=== PATIENT | male | born 1935 | race Caucasian/White ===

== ENCOUNTER 2021-01-14 16:20 | Emergency (ER) | payer OTHER ==
[2021-01-14 17:22] LABS: ALT (SGPT) 16 U/L (8-55); AST (SGOT) 24 U/L (5-34); Albumin 3.7 g/dL (3.4-4.8); Alkaline Phosphatase 88 U/L (40-110); Anion Gap 12 mmol/L (10-20); BUN (Urea Nitrogen) 17 mg/dL (8.4-25.7); Bilirubin, Total 0.3 mg/dL (0.2-1.2); Calc. Creatinine Clearance 0 mL/min (70-130); Calcium 9.2 mg/dL (7.8-10.44); Carbon Dioxide 24 mmol/L (23-31); Chloride 106 mmol/L (98-107); Glucose 130 mg/dL (83-110); Potassium 4.3 mmol/L (3.5-5.1); Protein, Total 6.7 g/dL (5.8-8.1); Sodium 138 mmol/L (136-145)
[2021-01-14 17:25] LABS: #Basophils 0.2 thou/uL (0.0-0.2); #Eosinphils 0.6 thou/uL (0.0-0.7); #Lymphocytes 2.5 thou/uL (1.20-3.40); #Monocytes 1.5 thou/uL (0.11-0.59); #Neutrophils 7.5 thou/uL (1.40-6.50); %Basophils 1.5 % (0.0-1.0); %Eosinophils 4.9 % (0.0-10.0); %Lymphocytes 20.3 % (21.0-51.0); %Monocytes 12.3 % (0.0-10.0); Anisocytosis SLIGHT = 6-15 cells (100X) (0-5/hpf); Hypochromia MODERATE=16-30 cells (100X) (0-5/hpf); Large Platelets SLIGHT; MDiff Complete? YES; Macrocytosis SLIGHT = 6-15 cells (100X) (0-5/hpf); Mean Corpuscular HGB CONC 29.7 g/dL (32.0-36.0); Mean Corpuscular Hemoglobin 23.7 pg (27.0-31.0); Mean Corpuscular Volume 79.6 fL (78.0-98.0); Platelet Count 358 thou/uL (130-400); Platelet Morphology Comment Appears Adequate; RBC Distribution Width 17.6 % (11.5-14.5); Red Blood Cell (RBC) Count 2.94 mill/uL (4.70-6.10); White Blood Cell (WBC) Count 12.3 thou/uL (4.8-10.8)
== END 2021-01-15 00:20 | disposition home or self-care (01) ==
LOC: MADERS 16:20
DX: D64.9 Anemia, unspecified (principal); R06.00 Dyspnea, unspecified; M79.89 Other specified soft tissue disorders; R60.0 Localized edema
CPT/HCPCS: 36415; 36430; 71045; 80053; 83880; 84484; 85025; 86850; 86900; 86901; 93005; 94760; J7620; P9016